=== PATIENT | female | born 1980 | race Hispanic/Latino ===

== ENCOUNTER → 2016-06-20 | Day surgery (SDC) | payer OTHER ==
[~2016-06-20] VITALS: Ht 162.6 cm; Wt 98.0 kg
[~2016-06-20] MED LIST: ALPRAZOLAM1 M2 PO; AMBIEN10 M1 PO; CELEXA10 M1 PO; CLONAZEPAM1 M2 PO; CYCLOBENZAPRINE10 M1 PO; GABAPENTIN400 M2 PO; NITROFURANTOIN100 M5 PO; NYSTATIN500000 UNI PO; ORAL CONTRACEPTIVE; PAMELOR50 M1 PO; PANTOPRAZOLE SO40 M1 PO; TOPAMAX50 M1 PO; ULTRAM50 M1 PO; VICODIN 5-3001 EACH PO; WELLBUTRIN XL150 M2 PO
--- NOTE | 2016-06-20 15:15 | Operative Report ---
Operative/Inv Procedure Report Surgery Date: 06/20/16 Name of Procedure: interstim revision Pre-Operative Diagnosis: pain at the left buttock battery site Post-Operative Diagnosis: same Estimated Blood Loss: scant Surgeon/Cloth Bin Packer: QUIQUE DIAZ MD Anesthesia: moderate sedation Implants: interstim Drains: none Microbiology: wound culture from left battery site Complications: none Condition: stable Operative Indication: pain at battery site Operative/Procedure Note Note: Dictation on patient Tasia Combs. She was identified in the holding area and consented for interstim revision. Patient was given the risks benefits and alternatives of the surgery and all questions were answered. She understands that the left buttock battery Pain may not improve may actually worsen or stay the same. Patient was taken to the operating room and placed on the operating table in the prone position. When she was comfortably positioned a timeout was performed. Antibiotics are infused and IV sedation was given to the patient was lightly sedated. The left battery pack site was attached and the patient felt that it was very painful. This was under anesthesia as well. Patient was prepped and treatment center staff fashion with ChloraPrep. The left buttock battery pocket site was infiltrated with 1% lidocaine. An battery was removed and the pocket was made larger by breaking up any scar tissue. Patient did not tolerate this very well at all. The wire was removed from the battery and no leaks were checked. She did not have sensation in the left thigh even until level VII. As a result, a lead on the patient's right side using fluoroscopic guidance. The sensation on the right side was stuck in the patient's vaginal area in the rectal area. After the wire was placed followed by the dilator. He was seated position in the lateral and the AP fluoroscopic images. The tunneler was then used to bring it to a new pocket site on the right buttock. It was secured to the battery previous one was on the left side and they continue related pocket. This was repeated and was seen to be in good working condition. The incision was closed with 3-0 interrupted Vicryl suture followed by 4-0 Monocryl subcuticular suture. This was done the patient's left pocket site as well. Incision was then closed with Steri-Strips and covered with OpSite. THe sponge and needle count were correct at the end of the case. Findings: good sensroy response on the right side in vagina Discharge Disposition: PACU
--- NOTE | 2016-06-23 10:20 | RADIOLOGY REPORT ---
EXAMINATION: XR SACRUM AND COCCYX CLINICAL INFORMATION: InterStim placement. COMPARISON: None TECHNIQUE: C-arm equipment was dedicated to the operating room for the performance of InterStim placement. 9 spot films were obtained and are submitted for review. FINDINGS: The images demonstrate serial placement of bilateral InterStim electrodes, which project over the mid sacrum bilaterally. IMPRESSION: Intraoperative fluoroscopy for InterStim placement.
== END ==
LOC: STS 03:23
DX: T85.840A Pain due to nervous system prosthetic devices, implants and grafts, initial encounter (principal); R35.0 Frequency of micturition; R33.9 Retention of urine, unspecified; R39.198 Other difficulties with micturition; M79.1 Myalgia
CPT/HCPCS: 87070; 87075; 36415; 72220; C1778; C1894; J0131; J0690; J1885; J2250